=== PATIENT | male | born 1990 | race Caucasian/White ===

== ENCOUNTER 2019-09-14 12:52 | Emergency (ER) | payer MEDICAID ==
[~2019-09-14] VITALS: Ht 190.5 cm; Wt 66.0 kg
[2019-09-14 13:01] VITALS: BP 134/86
[2019-09-14] MEDS ORDERED: clotrimazole/betamethasone diproprion. cream 15gm TP STA (14:00)
== END 2019-09-14 14:58 | disposition home or self-care (01) ==
LOC: ER 12:53
DX: S90.822A Blister (nonthermal), left foot, initial encounter (principal); S90.821A Blister (nonthermal), right foot, initial encounter; B35.3 Tinea pedis; Z56.0 Unemployment, unspecified; Z59.0 Homelessness; X58.XXXA Exposure to other specified factors, initial encounter; Y93.89 Activity, other specified; Y92.89 Other specified places as the place of occurrence of the external cause; Y99.8 Other external cause status
CPT/HCPCS: 99283

== ENCOUNTER 2019-09-15 00:10 | Emergency (ER) | payer MEDICAID ==
[~2019-09-15] VITALS: Ht 193 cm; Wt 54.6 kg
--- NOTE | 2019-09-15 00:19 | NUR ---
unable to get bp during triage.
--- NOTE | 2019-09-15 00:22 | NUR ---
Pt reports that he "probably used meth last night"
[2019-09-15 00:55] VITALS: BP 125/96
== END 2019-09-15 00:59 | disposition home or self-care (01) ==
LOC: ER 00:11
DX: K12.0 Recurrent oral aphthae (principal); J02.9 Acute pharyngitis, unspecified; Z56.0 Unemployment, unspecified; Z59.0 Homelessness
CPT/HCPCS: 99282

== ENCOUNTER 2019-09-18 07:41 | Emergency (ER) | payer MEDICAID ==
[~2019-09-18] VITALS: Ht 190.5 cm; Wt 66.9 kg
[2019-09-18 07:44] VITALS: BP 131/77
[2019-09-18] MEDS ORDERED: ibuprofen 200mg tablet PO ONE (08:00)
[2019-09-18] MEDS ORDERED: penicillin V potassium 500mg tablet PO ONE (08:00)
[2019-09-18] MEDS ORDERED: PENI-88 PO (08:00)
== END 2019-09-18 08:15 | disposition home or self-care (01) ==
LOC: ER 07:41
DX: K04.7 Periapical abscess without sinus (principal); K08.89 Other specified disorders of teeth and supporting structures; F17.200 Nicotine dependence, unspecified, uncomplicated; Z56.0 Unemployment, unspecified; Z59.0 Homelessness; Z79.2 Long term (current) use of antibiotics
CPT/HCPCS: 99283